=== PATIENT | male | born 1955 | race African-American/Black ===

== ENCOUNTER 2020-05-01 14:53 | Inpatient (IN) ==
[2020-05-01] MEDS ORDERED: Ondansetron 4 MG/2 ML VIAL IVP PRN (18:18)
[2020-05-01] MEDS ORDERED: Acetaminophen 325 MG TABLET PO PRN (18:18)
[2020-05-01] MEDS ORDERED: Naloxone 0.4 MG/ML INJ IVP PRN (18:18)
[2020-05-01] MEDS ORDERED: Vancomycin 1,500 MG/265 ML IV.SOLN IVPB ONE (18:35)
[2020-05-01] MEDS ORDERED: Vancomycin (wt based) 1,000 MG VIAL IVPB SCH (19:00)
[2020-05-01] MEDS ORDERED: Piperacillin/Tazobactam 3.375 GM in 0.9 % Sodium Chloride Mini Bag 100 ML IVPB SCH (19:00)
[2020-05-01] MEDS: Norepinephrine 4 MG/254 ML IV.SOLN IVC SCH (19:15)
[2020-05-01 19:48] LABS: ABG Base Excess 0 mEq/L (-2 to 3); ABG HCO3 25 mEq/L (21-27); ABG Oxygen Saturation 97 % (95-98); ABG PCO2 41 mmHg (35-45); ABG PH 7.39 pH Units (7.32-7.45); ABG PO2 95 mmHg (85-104); ABG TCO2 26 mEq/L (20-26)
[2020-05-01 19:52] LABS: Hematocrit 38.4 % (37.5-50.1); Hemoglobin 11.9 g/dL (12.9-16.9); Mean Corpuscular Volume 87.1 fL (83.0-100.0); Nucleated Red Blood Cells 0.1 /100 WBC (0); Platelet Count 400 K/mcL (140-400); Red Blood Count 4.41 M/mcL (4.19-5.50); Red Cell Distribution Width 13.5 % (11.5-14.5)
[2020-05-01 19:55] LABS: White Blood Count 45.6 K/mcL (4.3-11.1)
[2020-05-01] MEDS: 0.9 % Sodium Chloride 1,000 ML IVC SCH (20:00)
[2020-05-01 20:06] LABS: Calcium 9.8 mg/dL (8.6-10.3); Magnesium 1.9 mg/dL (1.6-2.6); Potassium 6.2 mEq/L (3.5-5.1)
[2020-05-01 20:36] LABS: Lymphocytes # 2.7 K/mcL (0.6-4.6); Monocytes # 0.9 K/mcL (0.0-1.3)
[2020-05-01 20:37] LABS: Smudge Cells Present (Not Present); Toxic Granulation Present (Not Present)
[2020-05-01 20:38] LABS: Macrocytosis Present (Not Present); Platelet Estimate Normal (Normal); Polychromasia 1+ (Not Present)
[2020-05-01 20:40] LABS: Large Platelets Present (Not Present)
[2020-05-01] MEDS: Piperacillin/Tazobactam 3.375 GM in 0.9 % Sodium Chloride Mini Bag 100 ML IVPB SCH (21:01)
[2020-05-01] MEDS ORDERED: Calcium Gluconate 1gm/50mL 1 GM/50 ML BAG IVPB ONE (21:28)
[2020-05-01] MEDS ORDERED: Albuterol Neb 7.5 MG, Sodium Chloride for inhalation 12 ML IH ONE (21:29)
[2020-05-01] MEDS ORDERED: Insulin Human Regular 10 UNIT in 0.9 % Sodium Chloride 10 ML IV ONE (21:29)
[2020-05-01] MEDS ORDERED: *HR* Dextrose 50 % in Water (Vial) 50 ML VIAL IVP ONE (21:30)
[2020-05-01] MEDS ORDERED: Furosemide 40 MG/4 ML VIAL IVP ONE (22:32)
[2020-05-01] MEDS ORDERED: *HR* Metoprolol 5 MG/5 ML VIAL IVP PRN (22:50)
[2020-05-01] MEDS ORDERED: Albuterol 2.5 MG/3 ML NEBULIZER ONE (23:05)
[2020-05-02 01:07] LABS: Calcium 9.8 mg/dL (8.6-10.3); Potassium 5.6 mEq/L (3.5-5.1)
[2020-05-02] MEDS: 0.9 % Sodium Chloride 1,000 ML IVC SCH (04:43)
[2020-05-02] MEDS: Piperacillin/Tazobactam 3.375 GM in 0.9 % Sodium Chloride Mini Bag 100 ML IVPB SCH ×3 (04:49→20:29)
[2020-05-02 05:09] LABS: Nucleated Red Blood Cells 0.1 /100 WBC (0)
[2020-05-02 05:11] LABS: Hemoglobin 10.8 g/dL (12.9-16.9); Mean Corpuscular HGB Conc 30.9 g/dL (31.6-35.5); Mean Corpuscular Hemoglobin 26.9 pg (28.0-33.3); Mean Corpuscular Volume 87.1 fL (83.0-100.0); Mean Platelet Volume 10.7 fL (9.4-12.4); Platelet Count 278 K/mcL (140-400); Red Blood Count 4.02 M/mcL (4.19-5.50); Red Cell Distribution Width 13.4 % (11.5-14.5)
[2020-05-02 05:28] LABS: Calcium 9.6 mg/dL (8.6-10.3); Magnesium 1.9 mg/dL (1.6-2.6); Potassium 5.5 mEq/L (3.5-5.1)
[2020-05-02 05:30] LABS: Anisocytosis 1+ (Not Present); Lymphocytes # 0.7 K/mcL (0.6-4.6); Neutrophils # 35.3 K/mcL (1.6-8.9); Platelet Estimate Normal (Normal); Polychromasia 1+ (Not Present); Smudge Cells Present (Not Present)
[2020-05-02 05:31] LABS: Toxic Granulation Present (Not Present)
[2020-05-02] MEDS ORDERED: *HR* Heparin 5,000 UNIT/ML VIAL SQ SCH (06:00)
[2020-05-02] MEDS: Azithromycin 500 MG in 0.9 % Sodium Chloride 250 ML IVPB SCH (08:14)
[2020-05-02 08:22] LABS: Uric Acid 11.1 mg/dL (2.3-7.6)
[2020-05-02] MEDS ORDERED: *HR* Heparin 5,000 UNIT/ML VIAL IVP ONE (09:53)
[2020-05-02] MEDS ORDERED: *HR* Heparin 5,000 UNIT/ML VIAL IVP PRN ×2 (09:53)
[2020-05-02] MEDS: Hydrocortisone Sodium Succ 100 MG/2 ML VIAL IVP SCH ×3 (10:26→23:37)
[2020-05-02 10:40] LABS: Heparin anti-factor XA UFH < 0.04 IU/mL (0.30-0.70)
[2020-05-02 10:41] LABS: INR 1.6; Prothrombin Time 17.9 Seconds (9.4-12.1)
[2020-05-02 10:51] LABS: Activated Partial Thrombo Time 32.5 Seconds (26.0-36.0)
[2020-05-02] MEDS: Heparin 25,000 UNIT/250 ML D5W 25,000 UNIT/250 ML IV.SOLN IVC SCH (10:51)
[2020-05-02 10:52] LABS: Basophils % 0.2 %; Hemoglobin 10.7 g/dL (12.9-16.9)
[2020-05-02] MEDS ORDERED: *HR* Alteplase (Cathflo) 2 MG VIAL IVP ONE (10:55)
[2020-05-02 10:56] LABS: Basophils # 0.1 K/mcL (0.0-0.2); Eosinophils % 0.1 %; Immature Granulocytes % 3.2 % (0-4); Lymphocytes # 7.9 K/mcL (0.6-4.6); Lymphocytes % 20.3 %; Mean Corpuscular HGB Conc 30.6 g/dL (31.6-35.5); Mean Corpuscular Hemoglobin 27.6 pg (28.0-33.3); Mean Corpuscular Volume 90.2 fL (83.0-100.0); Mean Platelet Volume 11.2 fL (9.4-12.4); Monocytes # 1.7 K/mcL (0.0-1.3); Monocytes % 4.3 %; Platelet Count 263 K/mcL (140-400); Red Blood Count 3.88 M/mcL (4.19-5.50); Red Cell Distribution Width 13.6 % (11.5-14.5); Segmented Neutrophils % 71.9 %
[2020-05-02 10:59] LABS: Phosphorous 5.7 mg/dL (2.7-4.5)
[2020-05-02 11:06] LABS: Thyroid Stimulating Hormone 2.942 mcIU/mL (0.340-5.600)
[2020-05-02 11:24] LABS: Platelet Estimate Normal (Normal)
[2020-05-02 11:25] LABS: Folate 11.1 ng/mL (3.0-16.0)
[2020-05-02] MEDS ORDERED: Vancomycin 1,500 MG/265 ML IV.SOLN IVPB SCH (12:00)
[2020-05-02] MEDS ORDERED: *HR* HYDROcodone/Acet 5/325 mg TABLET PO PRN (14:00)
[2020-05-02] MEDS: Norepinephrine 4 MG/254 ML IV.SOLN IVC SCH (17:50)
[2020-05-02] MEDS: *HR* OxyCODONE/APAP 5/325 TABLET PO PRN (18:27)
[2020-05-02] MEDS: Metoprolol XL (24 HR) Succ 25 MG TAB.ER.24H PO SCH (20:29)
[2020-05-02] MEDS: Lactobacillus 1 EACH CAP.SPRINK PO SCH (20:29)
[2020-05-03] MEDS: Hydrocortisone Sodium Succ 100 MG/2 ML VIAL IVP SCH ×2 (05:11→17:50)
[2020-05-03] MEDS: Piperacillin/Tazobactam 3.375 GM in 0.9 % Sodium Chloride Mini Bag 100 ML IVPB SCH ×3 (05:11→20:58)
[2020-05-03] MEDS: Heparin 25,000 UNIT/250 ML D5W 25,000 UNIT/250 ML IV.SOLN IVC SCH ×2 (05:12→11:19)
[2020-05-03] MEDS: *HR* OxyCODONE/APAP 5/325 TABLET PO PRN (05:21)
[2020-05-03 06:23] LABS: Eosinophils % 0.1 %; Hemoglobin 10.2 g/dL (12.9-16.9)
[2020-05-03 06:25] LABS: Basophils # 0.1 K/mcL (0.0-0.2); Basophils % 0.3 %; Hematocrit 32.5 % (37.5-50.1); Immature Granulocytes % 3.2 % (0-4); Lymphocytes % 21.3 %; Mean Corpuscular HGB Conc 31.4 g/dL (31.6-35.5); Mean Corpuscular Hemoglobin 27.6 pg (28.0-33.3); Mean Corpuscular Volume 87.8 fL (83.0-100.0); Monocytes % 4.4 %; Neutrophils # 32.7 K/mcL (1.6-8.9); Platelet Count 276 K/mcL (140-400); Red Cell Distribution Width 13.5 % (11.5-14.5); Segmented Neutrophils % 70.7 %
[2020-05-03 06:27] LABS: Eosinophils # 0.1 K/mcL (0.0-0.6); Lymphocytes # 9.8 K/mcL (0.6-4.6); White Blood Count 46.2 K/mcL (4.3-11.1)
[2020-05-03 06:40] LABS: Platelet Estimate Normal (Normal); Smudge Cells Present (Not Present)
[2020-05-03 06:43] LABS: Albumin 2.3 g/dL (3.5-5.7); Bilirubin,Total 0.7 mg/dL (0.3-1.0); Calcium 8.8 mg/dL (8.6-10.3); Globulin 2.3 g/dL (2.4-3.5); Potassium 5.5 mEq/L (3.5-5.1); Total Protein 4.6 g/dL (6.4-8.9)
[2020-05-03] MEDS: Metoprolol XL (24 HR) Succ 25 MG TAB.ER.24H PO SCH ×2 (08:08→20:05)
[2020-05-03] MEDS: Lactobacillus 1 EACH CAP.SPRINK PO SCH ×2 (08:08→20:04)
[2020-05-03] MEDS: Azithromycin 500 MG in 0.9 % Sodium Chloride 250 ML IVPB SCH (08:09)
[2020-05-03 09:05] LABS: Magnesium 1.8 mg/dL (1.6-2.6); Phosphorous 6.2 mg/dL (2.7-4.5); Uric Acid 10.3 mg/dL (2.3-7.6)
[2020-05-03] MEDS ORDERED: *HR* OxyCODONE/APAP 10/325 TABLET PO PRN (09:55)
[2020-05-03] MEDS ORDERED: Sodium Bicarbonate 150 MEQ in D5% in Water 1,000 ML IVC SCH (10:45)
[2020-05-03] MEDS ORDERED: *HR* OxyCODONE/APAP 5/325 TABLET PO SCH (12:00)
[2020-05-03 12:04] LABS: Sodium, Urine 11.2 mEq/L
[2020-05-03 12:58] LABS: Amorphous Sediment,Urine Few per hpf (None-Few); Bilirubin,Urine Negative (Negative); Blood,Urine Moderate (Negative); Clarity,Urine Turbid (Clear); Color,Urine Yellow (Yellow); Glucose,Urine (UA) Normal (Normal); Granular Casts,Urine Few per lpf (None Seen); Ketones,Urine Negative (Negative); Leukocyte Esterase,Urine Trace (Negative); Mucus,Urine Few per lpf (None-Few); Nitrite,Urine Negative (Negative); PH,Urine 5.5 pH Units (5.0-8.0); Protein,Urine 70 mg/dL (Neg-Trace); RBC,Urine 50-100 per hpf (0-3); Specific Gravity,Urine 1.023 (1.010-1.025); Sperm,Urine Present (None Seen); Squamous Epithelial Cell,Urine Few per hpf (None-Few); Uric Acid Crystals,Urine Present; Urobilinogen,Urine Normal (Normal)
[2020-05-03] MEDS ORDERED: Magnesium Sulfate 1 GM/102 ML PIGGYBACK IVPB ONE (12:59)
[2020-05-03] MEDS: Calcium Acetate 667 MG CAPSULE PO SCH ×2 (13:43→17:50)
[2020-05-03] MEDS ORDERED: *HR* LORazepam 2 MG/ML VIAL IVP ONE (16:07)
[2020-05-03] MEDS ORDERED: *HR* LORazepam 2 MG/ML VIAL IVP PRN (16:39)
[2020-05-03] MEDS ORDERED: *HR* FentaNYL PATCH 25 MCG PATCH TD SCH (16:45)
[2020-05-03] MEDS ORDERED: 0.9 % Sodium Chloride 500 ML ONE (20:36)
[2020-05-03] MEDS: 0.9 % Sodium Chloride 500 ML IV ONE (20:58)
[2020-05-04] MEDS ORDERED: 0.9 % Sodium Chloride 500 ML IV ONE ×2 (02:36→05:36)
[2020-05-04 04:52] LABS: Hemoglobin 10.7 g/dL (12.9-16.9)
[2020-05-04 04:54] LABS: Hematocrit 33.2 % (37.5-50.1); Mean Corpuscular HGB Conc 32.2 g/dL (31.6-35.5); Mean Corpuscular Hemoglobin 28.1 pg (28.0-33.3); Mean Corpuscular Volume 87.1 fL (83.0-100.0); Platelet Count 263 K/mcL (140-400); Red Blood Count 3.81 M/mcL (4.19-5.50); Red Cell Distribution Width 13.7 % (11.5-14.5)
[2020-05-04 04:57] LABS: White Blood Count 44.9 K/mcL (4.3-11.1)
[2020-05-04 05:12] LABS: Albumin 2.3 g/dL (3.5-5.7); Albumin/Globulin Ratio 1.1 (1.1-2.2); Bilirubin,Total 0.7 mg/dL (0.3-1.0); Calcium 8.4 mg/dL (8.6-10.3); Globulin 2.1 g/dL (2.4-3.5); Phosphorous 6.2 mg/dL (2.7-4.5); Potassium 5.1 mEq/L (3.5-5.1); Total Protein 4.4 g/dL (6.4-8.9); Uric Acid 10.3 mg/dL (2.3-7.6)
[2020-05-04] MEDS ORDERED: 0.9 % Sodium Chloride 500 ML ONE (05:35)
[2020-05-04] MEDS ORDERED: Albumin 25% 25gram/100mL 25 GM/100 ML IV.SOLN IVPB ONE (05:43)
[2020-05-04] MEDS: Piperacillin/Tazobactam 3.375 GM in 0.9 % Sodium Chloride Mini Bag 100 ML IVPB SCH (05:53)
[2020-05-04] MEDS: Hydrocortisone Sodium Succ 100 MG/2 ML VIAL IVP SCH (05:54)
[2020-05-04] MEDS: 0.9 % Sodium Chloride 500 ML IV ONE (06:13)
[2020-05-04 06:47] VITALS: BP 96/63
[2020-05-04] MEDS: Azithromycin 500 MG in 0.9 % Sodium Chloride 250 ML IVPB SCH (07:33)
[2020-05-04] MEDS: Metoprolol XL (24 HR) Succ 25 MG TAB.ER.24H PO SCH (07:43)
[2020-05-04] MEDS: Calcium Acetate 667 MG CAPSULE PO SCH (07:43)
[2020-05-04] MEDS: Lactobacillus 1 EACH CAP.SPRINK PO SCH (07:43)
[2020-05-04] MEDS ORDERED: *HR* FentaNYL PATCH 25 MCG PATCH TD SCH (09:45)
== END 2020-05-04 10:27 | disposition hospice, inpatient (51) | DRG 720 ==
LOC: CDU 17:09 → ICNU 19:09 → 2NNU 05-03 18:26
PROVIDERS: ADMIT Family Medicine; ATTEND Family Medicine

== ENCOUNTER 2020-05-04 09:59 | Inpatient (IN) ==
[2020-05-04] MEDS ORDERED: Haloperidol Lactate 5 MG/ML VIAL IVP PRN (10:20)
[2020-05-04] MEDS ORDERED: Atropine Sulfate 1% 40 DROP/2 ML BOTTLE SL PRN (10:20)
[2020-05-04] MEDS ORDERED: Bisacodyl 10 MG RECTAL SUPPOSITORY RC PRN (10:20)
[2020-05-04] MEDS ORDERED: *HR* LORazepam 2 MG/ML VIAL IVP PRN (10:20)
[2020-05-04] MEDS ORDERED: *HR* FentaNYL PATCH 25 MCG PATCH TD SCH (10:30)
[2020-05-04 19:03] VITALS: BP 88/52
== END 2020-05-05 00:04 | disposition expired | DRG 951 ==
LOC: 2ANU 10:28
PROVIDERS: ADMIT Internal Medicine Hospice and Palliative Medicine; ATTEND Internal Medicine Hospice and Palliative Medicine